=== PATIENT | female | born 1975 | race Caucasian/White ===

== ENCOUNTER 2019-10-03 10:26 | Outpatient (CLI) | payer BC, SELFPAY ==
--- NOTE | ~2019-10-03 | MM_ITS ---
EXAMINATION: MM screening mook BI w renee HISTORY: Screening mammogram TECHNIQUE: Craniocaudal and mediolateral oblique 3-D tomosynthesis images were obtained and synthetic 2-D images were generated. CAD analysis was submitted and interpreted. COMPARISON: 03/17/2016 bilateral digital screening mammogram BREAST PARENCHYMAL COMPOSITION: There are scattered areas of fibroglandular density. FINDINGS: There is no evidence of suspicious mass, calcification, or architectural distortion to sugg est malignancy in either breast. There has been no suspicious interval change. IMPRESSION: 1. No mammographic evidence of malignancy. 2. Recommend routine screening mammography in one year. BI-RADS Category 1: Negative Reviewed, dictated and finalized at location A. C EXECUTIVE
== END 2019-10-03 10:27 | disposition home or self-care (01) ==
LOC: ANHIMG 10:31
PROVIDERS: Visit Provider Obstetrics & Gynecology
DX: Z12.31 Encounter for screening mammogram for malignant neoplasm of breast (principal)
CPT/HCPCS: 77063; 77067

== ENCOUNTER 2024-07-03 14:15 | Outpatient (CLI) | payer BC, SELFPAY ==
--- NOTE | ~2024-07-03 | MM_ITS ---
EXAMINATION: MM screening mook BI w renee HISTORY: Screening TECHNIQUE: Craniocaudal and mediolateral oblique 3-D tomosynthesis images were obtained and synthetic 2-D images were generated. CAD analysis was submitted and interpreted. COMPARISON: Comparison to multiple prior studies sequentially, with oldest reviewed study dated 03/17. BREAST PARENCHYMAL COMPOSITION: Not dense: There are scattered areas of fibroglandular density. FINDINGS: There is a new mass in the upper outer quadrant of the right breast, middle third. There is a new developing areas of asymmetry in the left axillary region overlying the inferior margin of the pectoralis muscle on the MLO view. There are new dense left axillary lymph nodes. IMPRESSION: 1. New right breast mass. New left breast asymmetry superiorly on MLO view. Dense left axillary lymph nodes. 2. Additional spot compression, exaggerated left CC and mediolateral views with possible follow-up br east ultrasound recommended. BI-RADS Category 0: Incomplete: Needs additional imaging evaluation. Reviewed, dictated and finalized at location B. 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 New right breast mass. New left breast asymmetry superiorly on MLO view. Den se left axillary lymph nodes. 2. Additional spot compression, exaggerated left CC and mediolateral views with possible follow-up breast ultrasound recommended. BI-RADS Category 0: Incomplete: Needs additional imaging evaluation.
== END 2024-07-03 14:16 | disposition home or self-care (01) ==
LOC: ANHIMG 14:17
PROVIDERS: Visit Provider Obstetrics & Gynecology
DX: Z12.31 Encounter for screening mammogram for malignant neoplasm of breast (principal); R92.8 Other abnormal and inconclusive findings on diagnostic imaging of breast
CPT/HCPCS: 77063; 77067

== ENCOUNTER 2024-07-20 13:12 | Outpatient (CLI) | payer BC, SELFPAY ==
--- NOTE | ~2024-07-20 | MMUS_ITS ---
EXAMINATION: US breast BI limited, MM diagnostic mook BI w renee HISTORY: Follow-up right breast mass in left breast asymmetries TECHNIQUE: Additional 3-D tomosynthesis images of the breasts were performed and synthetic 2-D images were generated. CAD analysis was submitted and interpreted. High resolution limited bilateral breast ultrasound was performed. COMPARISON: Comparison to multiple prior studies sequentially, with oldest reviewed study dated 03/17. BREAST PARENCHYMAL COMPOSITION: Not dense: There are scattered areas of fibroglandular density. FINDINGS: MAMMOGRAPHIC FINDINGS: There is a small mass in the upper outer quadrant of the right breast with central lucency, likely be nign intramammary lymph node there are asymmetries in the upper inner quadrant of the left breast, al though no discrete mass identified. No sonographic correlate is identified in the area of mammographi c concern. ULTRASOUND: Limited right breast ultrasound: Normal heterogeneous echotexture without focal solid or cystic mass. Limited left breast ultrasound: Normal heterogeneous echotexture without focal solid or cystic mass. Mildly prominent ducts are present in the 11:00 position of the left breast, 10 cm from the nipple. IMPRESSION: 1. Probable benign left breast asymmetries. No evidence for malignancy in the right breast. 2. Recommend 6 month follow-up diagnostic left mammogram. BI-RADS category 3, probably benign findings. Reviewed, dictated and finalized at location B. 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 Probable benign left breast asymmetries. No evidence for malignancy in the r ight breast. 2. Recommend 6 month follow-up diagnostic left mammogram. BI-RADS category 3, probably benign findings.
== END 2024-07-20 13:13 | disposition home or self-care (01) ==
LOC: ANHIMG 13:14
PROVIDERS: Visit Provider Obstetrics & Gynecology
DX: R92.8 Other abnormal and inconclusive findings on diagnostic imaging of breast (principal)
CPT/HCPCS: 76642; 77062; 77066; G0279

== ENCOUNTER 2025-01-29 12:17 | Outpatient (CLI) | payer BC, SELFPAY ==
--- NOTE | ~2025-01-29 | MM_ITS ---
Examination: MM diagnostic THERESE LT W renee and US breast LT limited INDICATION: 49-year old female; BI-RADS 3, short-term follow-up probably benign left breast asymmetry . COMPARISON: 07/20/2024 and 10/03/2019 TECHNIQUE: Digital breast tomosynthesis True lateral and spot compression of the LEFT breast were obt ained with computer-aided detection to assist in interpretation of the study. FINDINGS: There are scattered areas of fibroglandular density. The focal asymmetry of concern in the superior medial at posterior depth location persists as a mass with ill-defined margins on spot compression views. This lesion is more prominent than on the prior e xamination. LEFT BREAST ULTRASOUND FINDINGS: Targeted evaluation of the superior medial revealed a subtle heterogeneous isoechoic area at 10:30 o' clock position, 10 cm from the nipple which measure 1.4 x 1.6 x 1 cm. This finding which has the appe arance of normal fibroglandular tissue is not a correlate to the mammographic finding. IMPRESSION: Suspicious left breast mass at superior-medial, posterior location with no sonographic correlate. Rec ommend biopsy under stereotactic guidance since the lesion is quite obvious on the mammogram examinat ion. RECOMMENDATION: Stereotactic-guided core biopsy of left breast mass at the superior medial location. BI-RADS 4, SUSPICIOUS Reviewed, dictated and finalized at location B. IMPRESSION: Suspicious left breast mass at superior-medial, posterior location with no sono graphic correlate. Recommend biopsy under stereotactic guidance since the lesio n is quite obvious on the mammogram examination. RECOMMENDATION: Stereotactic-guided core biopsy of left breast mass at the superior medial loca tion. BI-RADS 4, SUSPICIOUS
--- OUTSIDE RECORDS SUMMARY | 2025-01-29 12:23 | XMS_ITS | Clinical Summary ---
Author Organization [facility] Address [address] [place] [address] Care Team Providers Care Churn Operator Margarine Name Role Phone Philomena Powell MD Primary Care Provider [phone] Allergies No known active allergies Medications Nexplanon 68 mg Implant 10/10/2022 Active Active Problems No known active problems Encounters Date Type Department Care Team Description 11/11/2024 External Device Data [facility] ABSTRACTION Provider, Abstract 10/31/2024 External Device Data [facility] ABSTRACTION Provider, Abstract 10/30/2024 External Device Data [facility] ABSTRACTION Provider, Abstract from Last 3 Months Family History Medical History Relation Name Comments Heart Disease Father Dominick Fuchs Hypertension Father Dominick Fuchs Parkinson's Disease Father Dominick Fuchs Relation Name Status Comments Father Dominick Fuchs Social History Tobacco Use Types Packs/Day Years Used Date Smoking Tobacco: Never Passive Smoke Exposure: Never Smokeless Tobacco: Never Tobacco Cessation:Counseling Given: No Alcohol Use Standard Drinks/Week Comments Yes 3 (1 standard drink = 0.6 oz pur e alcohol) Comments No Sex and Gender Information Value Date Recorded Sex Assigned at Not on file Legal Sex Female 10:04 AM 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 Gender Identity Not on file Sexual Orientation Not on file Last Filed Vital Signs Vital Sign Reading Time Taken Comments Blood Pressure 124/82 11/12/2023 11:12 AM CDT Pulse 90 11/12/2023 11:12 AM CDT Temperature 37.1 C (98.7 F) 11/12/2023 11:12 AM CDT Respiratory Rate 18 11/12/2023 11:12 AM CDT Oxygen Saturation 94% 11/12/2023 11:12 AM CDT Inhaled Oxygen Concentration - - Weight 74.8 kg (165 lb) 11/12/2023 11:12 AM CDT Height 172.7 cm (5' 8) 11/12/2023 11:12 AM CDT Body Mass Index 25.09 11/12/2023 11:12 AM CDT Plan of Treatment Health Maintenance Due Date Last Done Comments DTAP/TDAP/TD VACCINES (1 - Tdap) 12/07/1994 HEPATITIS B VACCINES (1 of 3 - 19+ 3-dose series) 12/07/1994 HPV/Cotest (21-29) 12/07/1996 HPV/Cotest (30-65) 12/07/2005 BREAST CANCER SCREENING 2015 COLORECTAL SCREENING 12/07/2020 FIT/FOBT Q 1 year 12/07/2020 Flex Sig/CT Colonography Q 5 years 12/07/2020 INFLUENZA VACCINE (#1) 2024 11/12/2023, 2022 Preventative Visit- Commercial 08/26/2024 10/19/2022 CERVICAL CANCER SCREENING 03/08/2025 PAP SMEAR 03/08/2025 03/08/2022 (Prev iously completed) Colorectal Cancer Screening 11/01/2025 FIT-DNA Q 3 years 11/01/2025 11/01/2022 Procedures Procedure Name Priority Date/Time Associated Diagnosis Comments COLON CANCER SCREEN, STOOL DNA Routine 11/01/2022 1:40 PM 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 Screening for colorectal cancer from Last 3 Months or Most Recently Relevant to Health Maintenance Results * COLON CANCER SCREEN, STOOL DNA (11/01/2022 1:40 PM 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) COLOGUARD RESULT Negative Negative [facility] Comment: NEGATIVE TEST RESULT. A negative Cologuard result indicates a low likelihood that a colorectal cancer (CRC) or advanced adenoma (adenomatous polyps with more advanced pre-malignant features) is present. The chance that a person with a negative Cologuard test has a colorectal cancer is less than 1 in 1500 (negative predictive value >99.9%) or has an advanced adenoma is less than 5.3% (negative predictive value 94.7%). These data are based on a prospective cross-sectional study of 10,000 individuals at average risk for colorectal cancer who were screened with both Cologuard and colonoscopy. (Deja Santizo, N Engl J Med 2014;370(14):1355-7056) The normal value (reference range) for this assay is negative. COLOGUARD RE-SCREENING RECOMMENDATION: Periodic colorectal cancer screening is an important part of preventive healthcare for asymptomatic individuals at average risk for colorectal cancer. Following a negative Cologuard result, the [place] [employer] and U.S. Multi-Society Task Force screening guidelines recommend a Cologuard re-screening interval of 3 years. References: [place] [employer] Guideline for Colorectal Cancer Screening: https://www.cancer.org/cancer/nljku-ldnlyi-rblifx/xvjeyyvef-eoimvivqf-fyvvpkh/ac s-rec ommendations.html.; Shashank DK, Yessi CR, Jeff LarsenK, Colorectal Cancer Screening: Recommendations for Physicians and Patients from the U.S. Multi-Society Task Force on Colorectal Cancer Screening , Am J Gastroenterology 2017; 112:3075-9215. TEST DESCRIPTION: Composite algorithmic analysis of stool DNA-biomarkers with hemoglobin immunoassay. Quantitative values of individual biomarkers are not reportable and are not associated with individual biomarker result reference ranges. Cologuard is intended for colorectal cancer screening of adults of either sex, 45 years or older, who are at average-risk for colorectal cancer (CRC). Cologuard has been approved for use by the U.S. FDA. The performance of Cologuard was established in a cross sectional study of average-risk adults aged 50-84. Cologuard performance in patients ages 45 to 49 years was estimated by sub-group analysis of near-age groups. Colonoscopies performed for a positive result may find as the most clinically significant lesion: colorectal cancer [4.0%], advanced adenoma (including sessile serrated polyps greater than or equal to 1cm diameter) [20%] or non- advanced adenoma [31%]; or no colorectal neoplasia [45%]. These estimates are derived from a prospective cross-sectional screening study of 10,000 individuals at average risk for colorectal cancer who were screened with both Cologuard and colonoscopy. (Deja Santizo, N Engl J Med 2014;370(14):4237-8409.) Cologuard may produce a false negative or false positive result (no colorectal cancer or precancerous polyp present at colonoscopy follow up). A negative Cologuard test result does not guarantee the absence of CRC or advanced adenoma (pre-cancer). The current Cologuard screening interval is every 3 years. ([place] [employer] and U.S. Multi-Society Task Force). Cologuard performance data in a 10,000 patient pivotal study using colonoscopy as the reference method can be accessed at the following location: www.[employer].ArtsApp/results. Additional description of the Cologuard test process, warnings and precautions can be found at www.cologuard.com. Stool STOOL SPECIMEN / Unknown 11/01/2022 1:40 PM 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 11/02/2022 6:31 PM 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 us Philomena Powell MD BODY FLUIDS AND STOOLS Final Result [facility] CLIA # [id number] [address] [facility], [address] [place] [address] from Last 3 Months or Most Recently Relevant to Health Maintenance Insurance [facility] BLUE ACCESS/TRUE BLUE PPO Care Teams Churn Operator Margarine Relationship Specialty Start Date End Date Philomena Powell MD [address] [place] [address] [phone] PCP - General Family Practice 10/19/22
--- OUTSIDE RECORDS SUMMARY | 2025-01-29 12:23 | XMS_ITS | Data Portability ---
Author Organization [place] - [facility], Jacobo Shafer Address [address] [place] [address] Care Team Providers Care Note Keeper Name Role Phone ALMA PINTO Primary Care Provider Assessment Encounter Date Assessment Date Assessment LastModified by Organization Details LastModified Time 01/09/2024 01/09/2024 Cerumen Bilateral ears cleared with warm water gsinks Not available 01/09/2024 12:07:41 Plan of Treatment Reminders Order Date Submit Date Provider Last Modified By Organization Details Last Modified Time Details Appointments None recorded. Lab None recorded. Referral None recorded. Procedures cerumen removal (PROC) [phone] [facility], [address] [place], [address], 13:18:37 Surgeries None recorded. Imaging None recorded. Medication Orders None recorded. Patient Targets Encounter Date Encounter Id Patient Goals Patient Target Last Modified By Organization Details Last Modified Time Hear better no pressure gsinks Not available 01/09/2024 12:23:33 Patient Instructions Encounter Date Encounter Id Patient Instructions Last Modified By Organization Details Last Modified Time 01/09/2024 [id number] Follow-up in 3 weeks gsinks Not available 01/09/2024 12:23:48 cerumen impaction's, ear buds,ear plugs for sleeping, white noise generators gsinks Not available 01/09/2024 12:24:51 Reason for Referral None Reported. Results Created Date Observation Date Name Description Value Unit Range Abnormal Flag Note LastModifiedBy Organization Detail LastModifiedTime Result Notes None recorded. Problems No Known Problems Medical Equipment None Reported. Allergies Allergen ID Allergen Name Allergen Category Reaction Reaction Severity Criticality Documentation Date Start Date Code Code System Note Provider Name and Address Organization Details Recorded Time 761373 No Allergy Informati on Available Not available Not available Not available Not available 11/20/2023 89442 UNK Comme nt: React ion Class : Aller gy; Sandra Boo null, [place] - [facility] 4 10:43:26 No known drug allergies Medications Name Sig Start Date Stop Date Status Note LastModified by Organization Details LastModified Time prednison e 10 mg tablet 1 tab(s) Oral daily,x1 0 days,Ins tr:Take 4 tablets for 4 days; Take 3 tablets for 3 days; Take 2 tablets for 2 days; Take 1 tablet for 1 day 04/04 completed Duration : 10 Durat ionUnit: days Sto pType: Physicia n Stop Terrance gIdentif icationN umber: [id number] S cheduled PRN: No Total Refills: 0 Consta ntIndica tor: Yes CSAS chedule: 0 active _status_ dt_tm: 8 9:18:41 AM Not Available Not Available Not Available Astelin 137 mcg (0.1 %) nasal spray 2 spray(s) nasal bid 05/29 completed StopType : Physicia n Stop Terrance gIdentif icationN umber: [id number] T otalRefi lls: 0 Consta ntIndica tor: Yes acti ve_statu s_dt_tm: 07/06/20 15 10:17:41 AM Not Available Not Available Not Available Tessalon 200 mg capsule 1 cap(s) po tid,x10 days 07/16 completed Duration : 10 Durat ionUnit: day(s) S topType: Physicia n Stop Terrance gIdentif icationN umber: [id number] S cheduled PRN: No Total Refills: 0 Consta ntIndica tor: Yes acti ve_statu s_dt_tm: 07/06/20 15 10:17:41 AM Not Available Not Available Not Available Vitals Date Recorded Body weight Body mass index (BMI) Body height Body temperature Oxygen saturation Oxygen saturation in Arterial blood by Pulse oximetry Respiratory rate Heart rate Systolic blood pressure Diastolic blood pressure Provider Name and Address Organization Details Last Updated DateTime 4 57891.3 g 23 kg/m2 180.34 cm 98.4 [degF] 98 % 98 % 16 /min 103 /min 110 mm[Hg] 70 mm[Hg] Selina Brown [place] - [facility] 11:01:58 Social History Question Answer Notes LastModified by [employer] Details LastModified Time Tobacco Smoking Status Never Smoker Selina brewster, [place] - [facility] 01/09/2024 10:59:55 What Is Your Level Of Caffeine Consumption? Moderate [id number] Information not available 01/09/2024 How Much Tobacco Do You Chew? None [email or web address] Information not available 01/09/2024 What Is The Highest Grade Or Level Of School You Have Completed Or The Highest Degree You Have Received? [id number] [email or web address] Information not available 01/09/2024 Cigar Smoking No [email or web address] Informatio n not available 01/09/2024 Does Anyone Insult Or Talk Down To You? Never Information not available 01/09/2024 Does Anyone Physically Hurt You At Home? Never [email or web address] Information not available 01/09/2024 Does Anyone Scream Or Curse At You? Never [email or web address] Information not available 01/09/2024 Does Anyone Threaten/bully You With Harm? Never [email or web address] Information not available 01/09/2024 Have You Ever Served In The ? No Information not available 01/09/2024 What Is Your Relationship Status? Information not available 01/09/2024 Sex: Unknown Functional Status Question Answer Note LastModified by [employer] Details LastModified Time Do you or have you ever used any other forms of tobacco or nicotine? No [email or web address] Information not available 01/09/2024 What is your level of alcohol consumption? Moderate [id number] Information not available 01/09/2024 Do you or have you ever used smokeless tobacco? 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 Family History Relationship Description Onset Age of this Age Resolved Age Notes LastModified by Organization Details LastModified Time Father No current problems or disability [email or web address] Not available 11:00:35 Mother No current problems or disability [id number] Not available 11:00:35 Medical History No medical history recorded. Gynecological HistoryNo gynecological history recorded. Obstetrics History GPAL:G 0 P 0 0 0 0 Past Encounters Encounter ID Performer Location Encounter Start Date Encounter Closed Date Diagnosis/Indication Diagnosis SNOMED-CT Code Diagnosis ICD10 Code Diagnosis Note [id number] Willian Hanks, [place] [address] [place] [address] 01/09/2024 10:55:34 01/09/2024 12:37:18 Impacted cerumen of bilateral ears 7828502922 208109 H61.23 Cleared Health Concerns Section Related Observation LastModified by Organization Detai ls LastModified Time None Recorded Concern Status LastModified by Organization Details LastModified Time None Recorded Advance Directives Directive None Recorded Payers Insurance Date Sequence Insurance Name Policy Number Policy Hylton Covered Member ID Hylton Member ID Guarantor Name 01/09/2024 [place] NON [employer]IGNA PPO (JOSE-BILLNataliia D) Mitra Rodrigez [id number] Mitra Rodrigez Notes Date Note Type Note Provider Name and Address Organization Details Recorded Time 01/09/2024 text/html States left ear clogged and pressure 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
== END 2025-01-29 12:18 | disposition home or self-care (01) ==
LOC: ANHIMG 12:21
PROVIDERS: Visit Provider Obstetrics & Gynecology
DX: R92.8 Other abnormal and inconclusive findings on diagnostic imaging of breast (principal)
CPT/HCPCS: 76642; 77061; 77065; G0279